=== PATIENT | male | born 1955 | race Caucasian/White ===

== ENCOUNTER 2020-03-22 09:58 | Outpatient (CLI) | payer OTHER ==
--- NOTE | 2020-03-22 11:34 | ULT ---
US Hepatic Doppler HISTORY: Elevated LFTs COMPARISON: None. FINDINGS: The liver demonstrates increased echogenicity consistent with fatty infiltration. No focal mass or ab normal biliary ductal dilatation is seen. The patient is post cholecystectomy. The spleen is borderline measuring 13 cm in length. The visualized portions of the pancreas are unremarkable. The c ommon duct measures 5 mm in diameter. No free fluid is seen. There is normal flow and spectral waveforms in the hepatic, portal and splenic vasculature. IMPRESSION: 1. Fatty liver 2. Status post cholecystectomy 3. Borderline hepatomegaly
== END 2020-03-22 09:59 | disposition home or self-care (01) ==
LOC: BICULT 09:58
PROVIDERS: ATTEND Internal Medicine Gastroenterology
DX: R94.5 Abnormal results of liver function studies (principal); K80.42 Calculus of bile duct with acute cholecystitis without obstruction; E11.9 Type 2 diabetes mellitus without complications; E78.5 Hyperlipidemia, unspecified; E66.3 Overweight; K76.0 Fatty (change of) liver, not elsewhere classified; Z90.49 Acquired absence of other specified parts of digestive tract
CPT/HCPCS: 76705

== ENCOUNTER 2021-02-05 13:29 | Outpatient (CLI) | payer BC ==
[2021-02-05 14:24] LABS: #Basophils 0.1 10x3/uL (0.0-0.2); #Eosinphils 0.2 10x3/uL (0.0-0.5); #Monocytes 0.5 10x3/uL (0.0-1.1); #Neutrophils 4.7 10x3/uL (1.5-8.4); %Basophils 0.6 % (0.0-2.0); %Eosinophils 2.9 % (0.0-6.0); %Lymphocytes 31.2 % (18.0-47.0); %Monocytes 5.6 % (0.0-10.0); %Neutrophils 59.3 % (40.0-75.0); Hemoglobin 14.3 g/dL (13.5-17.5); Mean Corpuscular HGB CONC 33.1 g/dL (32.0-36.0); Mean Corpuscular Hemoglobin 32.9 pg (27.0-33.0); Mean Corpuscular Volume 99.3 fl (81.2-95.1); Mean Platelet Volume 9.5 fl (7.4-10.4); Platelet Count 247 10x3/uL (150-450); RBC Distribution Width 12.5 % (11.5-14.5); Red Blood Cell (RBC) Count 4.35 10x6/uL (4.32-5.72)
[2021-02-05 14:36] LABS: Anion Gap 13 mmol/L (10-20); BUN (Urea Nitrogen) 21 mg/dL (8.4-25.7); Calc. Creatinine Clearance 0 mL/min (70-130); Carbon Dioxide 24 mmol/L (23-31); Chloride 107 mmol/L (98-107); Potassium 4.2 mmol/L (3.5-5.1); Sodium 140 mmol/L (136-145)
[2021-02-05 14:37] LABS: Calcium 10.5 mg/dL (7.8-10.44); Glucose 144 mg/dL (80-115)
[2021-02-06 11:50] LABS: SARS-CoV-2 PCR by NAA Not Detected (NotDetected)
[2021-02-07 09:04] VITALS: BMI 32.9
== END 2021-02-05 13:30 | disposition home or self-care (01) ==
LOC: LABBT 13:29
PROVIDERS: ATTEND Orthopaedic Surgery
DX: Z01.818 Encounter for other preprocedural examination (principal); S83.232A Complex tear of medial meniscus, current injury, left knee, initial encounter; M23.92 Unspecified internal derangement of left knee; Z20.822 Contact with and (suspected) exposure to COVID-19
CPT/HCPCS: 71046; 80048; 85025; 93005; 93010; U0003; U0005

== ENCOUNTER 2021-02-08 07:21 | Day surgery (SDC) | payer BC ==
[2021-02-08] MEDS ORDERED: ceFAZolin 2 GM/DEX 5% 100 ML BAG ONE (08:28)
[2021-02-08] MEDS ORDERED: Fentanyl 100 MCG/2 ML VIAL ONE ×2 (08:53→10:16)
[2021-02-08] MEDS ORDERED: Midazolam HCl 2 mg/2 ml Vial ONE (08:53)
[2021-02-08] MEDS ORDERED: PHENYLEPHRINE-NS 100 MCG/ML 10 ML SYRINGE ONE (10:28)
[2021-02-08] MEDS ORDERED: Bupivacaine HCl 0.5%/Epinephrine 1:200,000/PF 30 ml Vial ONE (10:28)
[2021-02-08] MEDS ORDERED: Lidocaine 1% PF 5 ML VIAL ONE (10:28)
[2021-02-08] MEDS ORDERED: Ondansetron PF 4 MG/2 ML Vial ONE ×2 (10:28→10:47)
[2021-02-08] MEDS ORDERED: PROPOFOL 200 MG/20 ML VIAL ONE (10:28)
[2021-02-08] MEDS ORDERED: Lidocaine 2% w/Epinephrine 1:200K 20 ML VIAL ONE (10:28)
[2021-02-08] MEDS ORDERED: ePHEDrine 50 MG/ML VIAL ONE (10:28)
[2021-02-08] MEDS ORDERED: Ketorolac Tromethamine 30 MG/ML VIAL ONE (10:28)
== END 2021-02-08 13:55 | disposition home or self-care (01) ==
LOC: SDC 07:21
PROVIDERS: ATTEND Orthopaedic Surgery
PROC: 0SBD4ZZ Excision of Left Knee Joint, Percutaneous Endoscopic Approach (ICD-10-PCS; principal; 2021-02-08)
DX: S83.232A Complex tear of medial meniscus, current injury, left knee, initial encounter (principal); M94.262 Chondromalacia, left knee; E11.9 Type 2 diabetes mellitus without complications; E78.5 Hyperlipidemia, unspecified; E07.9 Disorder of thyroid, unspecified; F17.200 Nicotine dependence, unspecified, uncomplicated; Z79.899 Other long term (current) drug therapy; Z79.84 Long term (current) use of oral hypoglycemic drugs; Z91.030 Bee allergy status
CPT/HCPCS: J1885; J2250; J2405; J2704; J3010; J3490